=== PATIENT | female | born 1990 | race Caucasian/White ===

== ENCOUNTER → 2016-08-19 | Outpatient (REF) | payer BC | LOC: M LAB REF 12:35 | PROVIDERS: ATTEND Nurse Practitioner Adult Health | DX: Z72.51 High risk heterosexual behavior (principal) ==

== ENCOUNTER → 2021-04-24 | Outpatient (REF) | payer BC | LOC: M LAB REF 16:14 | PROVIDERS: ATTEND Nurse Practitioner Adult Health | DX: D69.6 Thrombocytopenia, unspecified (principal); D75.839 Thrombocytosis, unspecified ==